=== PATIENT | female | born 1970 | race African-American/Black ===

== ENCOUNTER 2016-12-06 10:03 | Emergency (ER) | payer OTHER ==
--- NOTE | ~2016-12-06 | CT2 ---
[facility] A Service of [facility] RADIOLOGY TEXT RESULTS PATIENT: HORACIO MCCARTHY LOCATION: CFTX : 74 UNIT #: [id number] AGE: [address]: Magdalena Kelly APRN SEX: F ORDER DR: [id number] [facility] [address] [place], [place] [address] [id number] MR#: [id number] Acc #: [id number] NAME: HORACIO MCCARTHY : 1970 SEX: F STUDY DATE/TIME: 12/06/2016 14:18 UNIT: CFTX ROOM: STUDY DESCRIPTION: CT Abd and Pelv W Cont Attending Physician: Magdalena Kelly A.P.R.N. Ordering Physician: Magdalena Kelly A.P.R.N. MEDICAL IMAGING REPORT This report is preliminary unless electronic signature is present EXAM CT abdomen and pelvis with IV contrast, 12/06/16. PROCEDURE Axial CT abdomen and pelvis with IV contrast with multiplanar reformats. This CT exam was performed with one or more of the following radiation dose reduction techniques: automatic exposure control, adjustment of mA and/or kV according to patient size, and iterative reconstruction. COMPARISON None. CLINICAL HISTORY Low back and low abdominal pain for 2 weeks. FINDINGS The lung bases are normal. ABDOMEN: The liver and gallbladder are normal. The spleen and pancreas are normal. The kidneys and adrenal glands are normal and the aorta is normal in caliber. There is no bowel obstruction. There is no intraabdominal mass or inflammatory change or abnormal fluid collection. The appendix is clearly identified and is normal. There is no pelvic mass or adenopathy, inflammatory change or abnormal fluid collection. The bony structures are normal except for mild degenerative change in the lower lumbar spine. IMPRESSION Normal/negative CT abdomen and pelvis. No renal or bowel or biliary [facility] A Service of [facility] RADIOLOGY TEXT RESULTS PATIENT: HORACIO MCCARTHY LOCATION: [place] : 74 UNIT #: [id number] AGE: [address]: Magdalena Kelly APRN SEX: F ORDER DR: obstruction. Normal appendix, no acute abnormality. Dictated by... Kain Walker M.D. THIS IS AN ELECTRONICALLY VERIFIED REPORT Kain Walker M.D. at 12/06/2016 10:46 PM LISY/felicitas TD: 12/06/2016 20:47 JOB #: [id number] MEDICAL IMAGING REPORT Page 1 of 1 COPY
[2016-12-06 11:48] LABS: BASOPHIL% 0.9 % (0-2.5); DIFF IND NO; EOSINOPHIL# 0.1 X10e3 (0-0.7); EOSINOPHIL% 2.2 % (0.0-7.0); HEMATOCRIT 38.6 % (35.0-45.0); HEMOGLOBIN 12.7 gm/dL (12.0-16.0); LYMPHOCYTE# 2.1 X10e3 (1.0-3.5); LYMPHOCYTE% 49.3 % (17.0-45.0); MEAN CELL VOLUME 92.8 FL (83-96); MEAN CORPUSCULAR HEMOGLOBIN 30.6 PG (28-34); MEAN CORPUSCULAR HGB CONC 32.9 g/dL (30-36); MEAN PLATELET VOLUME 8.4 FL (6.5-11.5); MONOCYTE# 0.3 X10e3 (0-1.0); NEUTROPHIL# 1.8 X10e3 (1.5-7.1); NEUTROPHIL% 40.6 % (40-75); PLATELET COUNT 284 X10e3 (140-420); RED BLOOD COUNT 4.16 X10e (3.90-5.30); WHITE BLOOD COUNT 4.4 X10e3 (4.0-10.5)
[2016-12-06 12:16] LABS: ALBUMIN SERUM 3.8 g/dL (3.5-5.0); BILIRUBIN,TOTAL 0.6 mg/dL (0.2-2.0); BUN/CREATININE RATIO 11.42; CALCIUM SERUM 9.4 mg/dL (8.4-10.2); CREATININE SERUM 0.7 mg/dL (0.6-1.4); GLOM FILT RATE Estimated 122.1 mL/min (>60); POTASSIUM 3.6 mmol/L (3.5-5.1); PROTEIN TOTAL SERUM 7.2 g/dL (6.0-8.3)
[2016-12-06 13:04] LABS: URINE SOURCE CATH
[2016-12-06 13:18] LABS: URINE APPEARANCE CLEAR; URINE BILIRUBIN NEG (NEG); URINE BLOOD 1+ (NEG); URINE COLOR YELLOW; URINE GLUCOSE NEG (NEG); URINE KETONE NEG (NEG); URINE LEUKOCYTE ESTERASE NEG (NEG); URINE NITRATE NEG (NEG); URINE PH 8.5 (5-8); URINE PROTEIN NEG (NEG); URINE SPECIFIC GRAVITY 1.009 (1.003-1.035); URINE UROBILINOGEN 0.2 MG/DL (NEG)
[2016-12-06 13:23] LABS: CULTURE INDICATED? NO
== END 2016-12-06 15:48 | disposition home or self-care (01) ==
LOC: CED 10:03 → CFTX 10:03
PROVIDERS: Nurse Practitioner
DX: M54.5 Low back pain (principal); R03.0 Elevated blood-pressure reading, without diagnosis of hypertension; F32.9 Major depressive disorder, single episode, unspecified
CPT/HCPCS: 36415; 74177; 80053; 81003; 85025; 99284; Q9967